=== PATIENT | female | born 1940 | race Caucasian/White ===

== ENCOUNTER 2024-12-11 14:01 | Inpatient (IN) | payer MEDICARE, OTHER, SELFPAY ==
[2024-12-10] VITALS (7 sets, daily range): BP systolic 171–194; BP diastolic 89–101; BMI 26.1
[2024-12-10 19:39] LABS: Hematocrit 44.0 % (37.0-47.0); Hemoglobin 14.6 g/dL (12.0-16.0); Mean Corp Hgb Conc. 33.2 g/dL (33.0-37.0); Mean Corpuscular Volume 87.0 fL (81.0-99.0); Nucleated Red Blood Cells % 0 %; Platelet Count 244 10^3/uL (130-400); Red Cell Dist. Width 12.7 % (11.5-14.5)
[2024-12-10 19:49] LABS: Urine Character Clear (Clear)
[2024-12-10 20:03] LABS: Urine Squamous Cell 16-20 /LPF (Few)
[2024-12-10 20:04] LABS: ALT (SGPT) 17 U/L (0-35); AST (SGOT) 26 U/L (14-36); Albumin 4.4 g/dl (3.5-5.0); Alkaline Phosphatase 79 U/L (38-126); Blood Urea Nitrogen 18 mg/dl (7-17); Calcium 8.9 mg/dl (8.4-10.2); Carbon Dioxide 25 mmol/L (22-30); Chloride 104 mmol/L (98-107); Estimated Creatinine Clearance 41 ml/min; Glucose 132 mg/dl (70-99); Potassium 4.2 mmol/L (3.5-5.1); Sodium 140 mmol/L (135-145); Total Protein 7.4 g/dl (6.3-8.2); eGFR 55.21
--- NOTE | 2024-12-10 20:35 | ED.GENMED ---
History of Present Illness
General
Chief Complaint: Fall
Time Seen by Provider: 12/10/24 20:35
History of Present Illness
History of Present Illness:
FOCUSED PAST MEDICAL HISTORY
- Dementia, high blood pressure
REVIEW OF OLD RECORDS
- No old records available for review in [facility]
Note:
CHIEF COMPLAINT(S)
Frequent falls observed today.
HISTORY OF PRESENT ILLNESS
The patient is an 84-year-old female with a known history of dementia who presented after experiencing three falls today. These incidents were reported by her . He did not witness the falls but confirms her being found on the floor once in
the setting of a planned trip to the eye doctor. The denied any observed injuries or complaints from the patient after these episodes. It is uncertain if she hit her head during the falls, although she is not currently on any anticoagulant
therapy. The patients white blood cell count and hemoglobin level were noted to be within normal limits. There is a mention of a previous fall in another location, after which she couldnt get up, indicating a potential need for placement in a safer
environment.
ADDITIONAL HISTORY OBTAINED FROM SOURCES OTHER THAN PATIENT
Per the patients , three falls were observed today without evidence of injury. He also noted a previous fall when the patient was unable to arise without assistance.
EXTERNAL RECORDS REVIEWED
Attempts to obtain records from [facility] proved challenging; thus, details about previous evaluations or interventions are unclear.
CHRONIC MEDICAL CONDITIONS SIGNIFICANTLY AFFECTING CARE
The patient has a history of dementia affecting her communication and orientation, potentially contributing to her falls.
SOCIAL DETERMINANTS AFFECTING HEALTH
The husbands report mentions that the patient is presently living at home with him, and there may be safety concerns regarding her ability to stay independently without additional support.
PHYSICAL EXAM
General: Alert, no acute distress.
Skin: Warm, dry.
Head: Normocephalic, atraumatic.
Neck: Supple, trachea midline, no midline cervical spine tenderness.
Eye Ears, Nose, Mouth, and Throat: Oral mucosa slightly dry.
Cardiovascular: Normal peripheral perfusion, No edema. Breath sounds clear and equal
Respiratory: Respirations are non-labored.
Gastrointestinal: Abdomen nondistended.
Back: Normal range of motion, Normal alignment.
Musculoskeletal: No pain with passive range of motion at either hip. Evidence of previous knee replacements noted.
Neurological: Alert but not oriented to the current month, can identify hospital location. No focal neurological deficit observed. There may be some slight impairment with finger-nose testing but overall did fair.
Psychiatric: Cooperative, appropriate mood and affect.
PLAN
- Administer intravenous fluids for hydration.
- Obtain a computed tomography scan of the brain to rule out significant injury from falls.
- Evaluate current care environment and consider options for rehabilitation or placement in a facility if safety at home is compromised.
DIFFERENTIAL DIAGNOSIS
The Differential Diagnosis includes, in no particular order and is not limited to:
- Orthostatic hypotension
- Medication side effects
- Progression of dementia
- Sensory deficits
- Cardiovascular events (e.g., arrhythmias)
- Neurological events (e.g., transient ischemic attack)
- Musculoskeletal issues
- Alcohol use
- Visual impairment
- Environmental hazards at home
RADIOLOGY
- CAT scan of the brain shows no acute abnormality
EKG
- Sinus 90, left axis deviation, no acute ST abnormality
LABS
- White count 11.3, hemoglobin normal, creatinine 1.0, glucose 132
UPDATE
-SUMMARY OF ENCOUNTER
The patient, an 84-year-old female with a known history of dementia, presented to the emergency department following three falls on the same day. Her reported these incidents but did not witness them. Upon evaluation, a CT scan of the brain
was performed, which showed no signs of injury or abnormalities. Laboratory work revealed a slightly elevated white blood cell count, but no clear signs of a urinary tract infection were identified, as indicated by the urine analysis. The patient
denies any burning with urination. A urine culture is pending. The patients safety for return home is being evaluated, with considerations for her ability to ambulate safely.
PLAN
- Continue monitoring the patients ability to walk safely with assistance from nursing staff.
- Await the urine culture results to rule out infection.
- Evaluate the patients care environment to ensure safety, given her recent falls and dementia diagnosis.
INDEPENDENT REVIEW OF LABS AND INTERPRETATION OF TESTS
My independent review of CBC shows a slightly elevated white blood cell count.
The urine analysis does not indicate any overwhelming signs of a urinary tract infection.
My independent interpretation of the CT brain scan reported by the radiologist confirms there is no sign of injury or abnormality in the brain.
MEDICAL DECISION MAKING
-Complexity of Data Reviewed: Chronic conditions affecting care include dementia. Differential Diagnosis: Orthostatic hypotension, medication side effects, progression of dementia, sensory deficits, cardiovascular events, neurological events,
musculoskeletal issues, alcohol use, visual impairment, and environmental hazards at home.
-Data:
Category 1
Non-emergency department records reviewed, if applicable. External record reviewed: I reviewed the patients outpatient pharmacy records.
Clinical information was obtained from an independent historian, specifically the patients .
Category 2
My independent interpretation of the CT brain scan indicates no abnormalities.
Category 3
There were no discussions of management with other healthcare providers.
-Risk:
Care significantly affected by Social Determinants of Health: The patients dementia and frequent falls present a significant safety concern, impacting her ability to live independently without additional support.
DIAGNOSIS
Dementia with behavioral disturbance (ICD-10: F02.81)
Repeated falls (ICD-10: R29.6)
Consider discharge however the patient fell 3 times today and is very concerned about her safety at home. The nurse got her up and walked her but she did very poorly with 2 nurses and was leaning into the nurse nearly falling. Unsafe to
discharge.
DISPOSITION
Admit
Phy Exam
Physical Exam
Physical Exam:
See HPI
Course
Orders/Labs/Results
Orders:
Orders
12/10/24 19:18
Electrocardiogram (*1) Urgent
Reason for Study: Fatigue / Weakness
12/10/24 19:19
EKG- Treatment ONCE
12/10/24 19:24
Complete Blood Count/With Diff Urgent
Comprehensive Metabolic Panel Urgent
12/10/24 19:39
Urinalysis Urgent
Date Specimen was Collected: 12/10/24
Time Specimen was Collected: 19:36
Urine Microscopic Urgent
Date Specimen was Collected: 12/10/24
Time Specimen was Collected: 19:36
12/10/24 20:41
CT Head W/o Iv Contrast Urgent
Comment:
Reason For Exam: recurrent falls; dementia
0.9% Sodium Chloride 500 ml [Nss] 500 ml IV BOLUS
Abnormal Lab Results
12/10/24 12/10/24
19:24 19:39
WBC 11.3 H 10^3/uL
(4.8-10.8)
Absolute Neuts (auto) 9.0 H 10^3/uL
(1.4-6.5)
Absolute Monos (auto) 0.9 H 10^3/uL
(0.1-0.6)
Neutrophils % 79.2 H %
(42.2-75.2)
Lymphocytes % 11.4 L %
(20.5-51.1)
BUN 18 H mg/dl
(7-17)
Glucose 132 H mg/dl
(70-99)
Total Bilirubin 1.4 H mg/dl
(0.2-1.3)
Urine Ketones 1+ A
(Negative)
Urine Occult Blood 2+ A
(Negative)
Urine Bilirubin 1+ A
(Negative)
Urine Urobilinogen 2+ A
(Neg - 1+)
Ur Leukocyte Esterase 1+ A
(Negative)
Urine RBC 3-6 A /HPF
(0-2)
Urine WBC 11-15 A /HPF
(0-5)
Urine Bacteria Few A
(Negative)
Urine Albumin 2+ A
(Neg - Trace)
12/10/24 19:24
12/10/24 19:24
Vital Signs
Initial and Last Documented VS:
Initial Vital Signs
Temp Pulse Resp BP Pulse Ox
36.8 C 94 18 174/97 97
12/10/24 19:20 12/10/24 19:20 12/10/24 19:20 12/10/24 19:20 12/10/24 19:20
Last Documented Vital Signs
Temp Pulse Resp BP Pulse Ox
36.8 C 92 18 174/97 97
12/10/24 19:20 12/10/24 19:22 12/10/24 20:00 12/10/24 19:22 12/10/24 20:37
*Pulse Oximetry
SaO2: 97
Oxygen Mode of Delivery: Room air
Patient hypoxic: no
*Critical Care Note
Total Time (30-74mins, 75-104mins- exclusive of procedures): Not Applicable
ED Attending Note
-
Portions of this chart may have been created with voice recognition software.� Occasional wrong word or��sound alike� substitutions may have occurred due to the inherent limitations of voice recognition software.
Discharge Plan
Departure
Referrals:
Ozzie Chavez DO [Family Provider, Family Practice]
Stand Alone Forms: Return to Work
Interventions
Interventions:
*Risk Screen - Suicide Last Done: 12/10/24 19:26
*General Assessment Last Done: 12/10/24 19:26
*Neglect/Abuse Screening Last Done: 12/10/24 19:26
*ED- Fall Risk Assessment Last Done: 12/10/24 19:26
*ED COVID-19 Vaccine History Last Done: 12/10/24 19:26
*ED Influenza Vaccine History Last Done: 12/10/24 19:26
ED-Musculoskeletal Assessment Last Done: 12/10/24 19:37
ED- Neurological Assessment Last Done: 12/10/24 19:37
ED-Skin Assessment Last Done: 12/10/24 19:37
Discharge Date and Time
Print Language: KOREAN
[2024-12-10] MEDS: NSS 500 IV (20:55)
--- NOTE | 2024-12-10 23:01 | HPS.HSE ---
Family Physician
-
Family Physician: Ozzie Chavez
Chief Complaint
-
Fall x 3
History of Present Illness
84-year-old female from home where she lives with her who also has dementia short-term memory impairment. He states his fell 3 times today. He also reports when they were at their [facility] home on 11/18/24 she also fell she was unable to
get up off the floor he called the ambulance she was taken to [facility] he is unsure what they treated her with however records look like she was given acid reflux medication and Robaxin. He believes he did burr picker one of the
medications but he is unsure if she is taking it. The patient recalls she did fall today but has no memory of the fall. She is supposed to be using a cane. She is unsure whether she takes her medications. She thinks she does lay them out but is
unsure of taking them. I spoke with her daughter Janay via phone who is try different alternatives setting up medications 2 weeks at a time but she states her mother just moved them around and her stepfather also forgets. She also believes she has
not filled her Namenda and rivastigmine that she receives from neurology follows with [facility] been she is unsure when her mother saw her last.
She has past medical history dementia, CKD 3B, hypertension, GERD, hypothyroidism
Medical History
Past Medical History
Past Medical History: Reports Other
Additional Past Medical History:
Dementia
CKD 3B
Hypertension
GERD
Hypothyroidism
Past Surgical History: Reports Other
Additional Past Surgical History:
Hysterectomy
Social History
Tobacco: Non-smoker
Alcohol: None
Personal:
Living: With Family (Lives with )
Employment: Retired
Family History
Family History: Unable to Obtain
Allergies / Home Medications
Allergies reflects when Allergies were last updated in [facility].
Home Medications with original date entered in [facility]
Allergy/Medication List:
Allergies
Allergy/AdvReac Type Severity Reaction Status Date / Time
No Known Allergies Allergy Verified 12/10/24 19:23
Home Medications
Namenda 10 mg PO DAILY 12/10/24
amlodipine 5 mg tablet 5 mg PO DAILY 12/10/24
levothyroxine 50 mcg tablet 50 mcg PO DAILY 12/10/24
rivastigmine 3 mg PO BID 12/10/24
Review of Systems
-
History Source: Patient and Family ( and daughter Janay via phone)
A 12 point ROS was completed and negative except as noted: Yes
Constitutional: Denies Fever or Fatigue
EENT: Denies Tearing or Mouth Swelling
Respiratory: Denies Cough or Trouble Breathing
Cardiac: Denies Chest Pain, Diaphoresis, Palpitations or Syncope
Abdomen/GI: Denies Abdominal Pain, Nausea, Vomiting, Diarrhea or Constipated
: Denies Dysuria, Frequency, Flank Pain or Incontinence
Musculoskeletal: Denies Joint Pain or Muscle Pain
Skin: Denies Itching or Rash
Neurological: Reports Headache (Frontal) and Weakness (With standing reportedly starts to lean and fall); Denies Dizzy
Endocrine: Reports No Symptoms
Hematologic/Lymphatic: Reports No Symptoms
Psych: Reports Calm
Physical Exam
Vital Signs
Vital Signs
Temp Pulse Resp BP Pulse Ox
98.3 F 92 18 174/97 97
12/10/24 19:20 12/10/24 19:22 12/10/24 20:00 12/10/24 19:22 12/10/24 20:37
Physical Exam
General: Conversant; No Fever or Chills
HEENT: NormoCephalic, Anicteric, Moist mucous membranes, Atraumatic, PERRLA, [place] Conjunctivae and No Ptosis
Respiratory: Clear; No Wheezes, Rales or Rhonchi
Cardiac: S1/S2 and Regular Rhythm; No Murmur, Rub, Gallop or Peripheral Edema
Breast: Deferred by me
GI: Soft, Non Tender, Non Distended, Normal Bowel Sounds and No Hepatosplenomegaly
Rectal: Deferred by Provider
Genito-urinary: Deferred by me
Musculoskeletal: No Clubbing, No Cyanosis and No Edema
Skin: Warm and Dry; No Rash
Neuro: Awake, Alert, Oriented (To name, , daughter, place but not medications, history, recent events due to history of dementia) and Other (Unsteady on feet according to nurse when attempted to walk in ER); No Slurred Speech, Facial Droop,
Tremors or Sedated
Psych: Calm
Laboratory Results
-
12/10/24 19:24
12/10/24 19:24
Laboratory Results
Total Bilirubin 1.4 mg/dl (0.2-1.3) H 12/10/24 19:24
AST 26 U/L (14-36) 12/10/24 19:24
ALT 17 U/L (0-35) 12/10/24 19:24
Alkaline Phosphatase 79 U/L (38-126) 12/10/24 19:24
Data Reviewed
-
CT Scan: Report Reviewed by me
Lab Data: Labs Reviewed by me
Impression/Plan
-
Impression/plan:
Observation MedSurg
#Uncontrolled hypertension due to dementia
BP 187/100
Patient has not been taking amlodipine 5 mg daily she is unsure when she took it last
- Resume amlodipine 5 mg daily
- Will give IV labetalol now
#Acute ambulatory dysfunction with recurrent falls today
Fell 3 times at home
- Unable to stand without falling
-orthostatics vitals
- Consult PT OT/case management as needs help at home due to dementia herself with dementia per daughter
CT head: No acute intracranial abnormality. No intracranial hemorrhage or skull fracture.
Chronic microvascular white matter disease.
Moderate global atrophy
EKG: NSR 90 bpm, QTc 464 MS no previous EKGs
#Pyuria likely contaminant
WBC 11.3 with left shift, afebrile 98.3, HR 92, 174/97
Urine WBC 11�15+1 leukocytes +2 occult blood few bacteria
Squamous epithelial 16�20
-Follow urine culture
#Dementia�moderate short-term
Oriented to name, , daughter
Unsure what happened today if she takes her medications
-Used to be on Namenda and rivastigmine
#CKD 3B
Creat 1/CrCl 41
#GERD
- Was given prescription for Prilosec 11/20/2024 [facility] is not taking
#Hypothyroidism
-resume Levothyroxine 50 mcg patient unsure if she is taking
-Check TSH with T4 reflex
DVT prophylaxis
Subcu heparin
DNR per patient with at bedside
Emergency contact is patient's daughter Janay Del Castillo [phone] as patient's also has dementia
[2024-12-10] MEDS: TYLENOL 650 MG PO (23:41)
[2024-12-11] VITALS (11 sets, daily range): BP systolic 162–188; BP diastolic 89–108; PULSE 75–99; O2SAT 98; BMI 26.1
[2024-12-11 00:07] LABS: Magnesium 2.2 mg/dl (1.6-2.3)
[2024-12-11] MEDS: TRANDATE 10 MG IV (00:31)
--- NOTE | 2024-12-11 01:00 | PTCARENOTE ---
Received patient from ED via stretcher. Patient pulled over from stretcher to bed. AAOx2, forgetful with date. No current complaints of pain. Oriented patient to room and placed call [place]ton within reach.
--- NOTE | 2024-12-11 01:25 | W.PN.UPDATE ---
Update Note
Progress Note Update
Patient seen in conjunction with nurse practitioner. I agree with the findings as seen physical. At goal assessment and plan listed otherwise.
Briefly, this is a 84-year-old female with past medical history significant for hypertension, hypothyroid and dementia who presented to the emergency department following concern for falls at home. Patient lives with spouse and both are unreliable
historians. Spouse reported to fall. He did not witness the falls but confirmed that the aide found her on the floor on multiple occasions and requested EMS to get her up. He is unable to recall details of how many times she had falling and he
had to call EMS. By family members she also had a fall when they were vacationing with family members recently. Patient herself denies having any pain. She reports a mild headache. She denies feeling dizzy or lightheaded. She denies having any
fevers chills cough shortness of breath chest pain nausea vomiting or diaphoresis. She denies having any urinary symptoms. Family reports that there has been issues with filling her medications. They sent in caregiver to check on her and it was
found that she is not compliant with her medications and only range ranges the medications in a pillbox but does not take them.
In the emergency department she was afebrile, blood pressure was 180s systolic. Pulse in the 70s and she was satting 98% on room air. CT of the head shows no acute interval changes. ECG showed a normal sinus rhythm at a rate of 90 without any
acute ischemic changes. UA was unremarkable. CBC was unremarkable stop electrolytes BUN and creatinine were all in normal range.
This is a 84-year-old with progressive dementia presenting to the emergency department via EMS for concern for falls. And no clear weakness due to falls but cannot be confirmed by spouse was found on the ground. She has no injuries. She has no
cardiac findings. She has no signs of an acute infection. Is not clear why she is falling but she has some ambulatory dysfunction. She has no significant cardiac disease.
� Will admit to telemetry
- Check orthostatic vital sign
- Will restart amlodipine, as needed labetalol IV for SBP greater than 190
- Check TSH
- PT consult
- Case management
DVT prophylaxis�heparin subcu
CODE STATUS�DNR
[2024-12-11] MEDS: SYNTHROID 50 MCG PO (05:12)
[2024-12-11 07:38] LABS: Hematocrit 41.2 % (37.0-47.0); Hemoglobin 13.4 g/dL (12.0-16.0); Mean Corp Hgb Conc. 32.5 g/dL (33.0-37.0); Mean Corpuscular Volume 91.2 fL (81.0-99.0); Nucleated Red Blood Cells % 0 %; Platelet Count 214 10^3/uL (130-400); Red Cell Dist. Width 12.8 % (11.5-14.5)
[2024-12-11 08:10] LABS: ALT (SGPT) 15 U/L (0-35); AST (SGOT) 24 U/L (14-36); Albumin 3.8 g/dl (3.5-5.0); Alkaline Phosphatase 76 U/L (38-126); Blood Urea Nitrogen 17 mg/dl (7-17); Calcium 8.4 mg/dl (8.4-10.2); Carbon Dioxide 25 mmol/L (22-30); Chloride 108 mmol/L (98-107); Estimated Creatinine Clearance 41 ml/min; Glucose 109 mg/dl (70-99); Potassium 4.0 mmol/L (3.5-5.1); Sodium 141 mmol/L (135-145); Total Protein 6.6 g/dl (6.3-8.2); eGFR 55.21
--- NOTE | 2024-12-11 08:26 | W.PN.HOSP.TC ---
Addendum entered and electronically signed by Nazario Gonzalez DO 12/11/24 09:39:
Updated patient's daughter Janay on the phone. All questions answered.
Addendum entered and electronically signed by Nazario Gonzalez, 12/11/24 09:20:
Patient does have right hemiparesis on exam with very mild right lower facial droop.
Unclear duration of symptoms. Potential stroke could explain the findings as well as her presentation with multiple falls. Will obtain brain MRI.
Left a voicemail for patient's daughter to call me back.
Original Note:
Today's Communication/Plan
-
Orthostatic vitals
Add HCTZ
PT/OT
Discharge planning
Assessment / Plan
Assessment / Plan
Gen-awake, alert, NAD
HEENT-NC, AT, anicteric, clear oral mm
Neck-supple
CV-reg, no M, +S1/S2
Lungs-clear B/L
Abd-soft, NT, ND
Ext-no edema
Musculoskeletal-no cyanosis, clubbing
Skin-warm and dry
Neuro-grossly non-focal
Psych-calm, cooperative
Ambulatory dysfunction, falls -unclear etiology. Suspect related to deconditioning, frailty. Patient has no focal neurologic deficits. Check orthostatics.
PT/OT.
Hypertensive urgency -blood pressure uncontrolled, reportedly was not taking her meds prior to admission. Amlodipine resumed. Will add HCTZ.
Hypothyroidism -continue levothyroxine. TSH normal.
Dementia -presumably Alzheimer's type.
DNR
Dispo -anticipate will need long-term care. Will discuss with case management.
Anticipated Discharge: Within 24 hours
Subjective/Interval History
-
Date of Service: December 11, 2024
Patient seen and examined, no complaints. Confused.
Objective Data
-
Labs:
Laboratory Results
12/11/24 12/11/24
06:47 06:48
WBC 7.0
Hgb 13.4
Hct 41.2
Plt Count 214
Sodium 141
Potassium 4.0
Chloride 108 H
Carbon Dioxide 25
BUN 17
Creatinine 1.0
Glucose 109 H
Calcium 8.4
Total Bilirubin 1.7 H
AST 24
ALT 15
Alkaline Phosphatase 76
Vital Signs:
Vital Signs
Temp Pulse Resp BP Pulse Ox
97.6 F 73 18 188/101 94
12/11/24 07:30 12/11/24 07:30 12/11/24 07:30 12/11/24 07:30 12/11/24 07:30
I&O
12/10/24 12/11/24 12/12/24
06:59 06:59 06:59
Output Total 50 / 50
Balance -50 / -50
Review of Systems
-
Unable to obtain full review of systems at this time due to: Dementia
History Source: Patient
All other systems: Reviewed and negative
[2024-12-11 09:01] LABS: Glucose - Point of Care 99 mg/dl (70-99)
[2024-12-11] MEDS: ORETIC 25 MG PO (09:13)
[2024-12-11] MEDS: HEPARIN 5000 UNITS SC ×2 (09:13→20:00)
[2024-12-11] MEDS: NORVASC 5 MG PO (09:13)
--- NOTE | 2024-12-11 09:45 | CM ---
Addendum entered by Nasreen Alcocer 12/11/24 18:05:
PT rec acute rehab. Referral sent to [facility] ([facility]), family not sure if they want this rehab. stated he wanted to look for somewhere closer. Choices need to presented to family.
Dtr says that the patient has [employer] insurance also but they do not have the new cards yet. Medicare is primary
Pt is not stable.
Plan: DC to acute rehab when stable.
Addendum entered by Nasreen Alcocer 12/11/24 10:04:
Met with pt briefly, introduction to CM and explanation of MIRANDA
Original Note:
IA and RUTH completed with dtr due to pt's dementia . MIRANDA also placed on chart. Pt lives with spouse in a single story home in a [place] community. Home has 5 steps at the entrance to the home. Has hx of HH after orthopedic events (knees replaced and
hip surgery). Dtr does not know what agency was used. Was at acute rehab at [place] a couple of years ago s/p ortho procedure. PCP, Rx,and insurance verified. No insecurities identified.
PCP: Ozzie Chavez
RX: [facility] in [place].
CM consult in process. CM spoke to Dtr. Will wait for outcome of PT/OT consult before moving forward with DC plan
is POA, per dtr. Have requested that these documents to the hospital today when she visits.
is unable to get pt off of the floor by himself after she falls.
Dtr states that the pt needs to have constant cues/reminders to perform ADLs, including taking medications, eating, drinking and bathing. Pt is still undergoing workup for cause of multiple falls at home.
Plan: TBD Awaiting PT/OT evals and results of brain MRI
--- NOTE | 2024-12-11 10:04 | PTCARENOTE ---
Notified by PT that pt was having Rt arm weakness; pt also with right facial droop; having difficulty standing. Dr. Gonzalez with pt- stroke alert not called; neuro consulted and pt for MRI. NIHSS initiated. Pt without c/o; stated 'I feel fine'.
Will continue to monitor.
[2024-12-11] MEDS: LOW STRENGTH ASPIRIN 81 MG PO (10:22)
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
[2024-12-11 14:23] LABS: Ferritin 183.0 ng/ml (11.1-264.0)
[2024-12-11 14:54] LABS: Folate 3.0 ng/ml (2.76-20); Vitamin B12 284 pg/ml (239-931)
--- NOTE | 2024-12-11 16:11 | PTCARENOTE ---
Pt AAO x3, moves LUE/LLE well, able to move RUE but arm is weak; has slight movement RLE; cannot lift Rt leg. Sensation (+) to extremities x4. Pt able to stand briefly to pivot/transfer with assist x2; has difficulty supporting weight. Pt has (+) Rt
facial droop; occ slight word-slurring. NIHSS 8. VSS. Telemetry:NSR. On room air- pulse ox 97%, no SOB noted. Abd obese, soft, katherine PO; no dysphagia noted. Incont urine; Purewick catheter in place draining lt edna urine. Resting in bed at
present; family at bedside. Will continue to monitor.
[2024-12-11] MEDS: LIPITOR 40 MG PO (17:48)
[2024-12-12] VITALS (10 sets, daily range): BP systolic 138–179; BP diastolic 78–111; PULSE 87; O2SAT 93–94
--- NOTE | 2024-12-12 05:30 | PTCARENOTE ---
At time of scheduled neuro check patient was noted to have increased weakness to her right side, increased slurring of speech, increased confusion, worsening ataxia, and new aphasia. Repeat NIH was conducted and noted to have increase in score from
a 6 to an 11. WEB DEVELOPMENT INTERN made aware and denied need for a stroke alert. Order for stat CT placed and completed.
--- NOTE | 2024-12-12 05:42 | W.PN.UPDATE ---
Addendum entered and electronically signed by MITCH Nichole 12/12/24 06:58:
ct negative for hemorrhagic conversion.
Original Note:
Update Note
Progress Note Update
0530 RN reports NIH worsening 6--> 11 (was an 8 for dayshift)--- worsening limb ataxia and mild aphasia, wrong LOC questions).
Brain MRI done yesterday showed + CVA
Will recheck CT head to assess for evolving cva
[2024-12-12] MEDS: SYNTHROID 50 MCG PO (06:28)
--- NOTE | 2024-12-12 07:56 | W.PN.HOSP.TC ---
Today's Communication/Plan
-
Increase amlodipine
Discharge planning
Assessment / Plan
Assessment / Plan
Gen-awake, alert, NAD
HEENT-NC, AT, anicteric, clear oral mm
Neck-supple
CV-reg, no M, +S1/S2
Lungs-clear B/L
Abd-soft, NT, ND
Ext-no edema
Musculoskeletal-no cyanosis, clubbing
Skin-warm and dry
Neuro-right hemiparesis, worse in the right leg compared to the right arm, very mild right lower facial droop
Psych-calm, cooperative
Acute ischemic left hemispheric stroke -right hemiparesis. Strongly suspect that the onset of stroke was with her multiple falls on December 10. Noted to be unsteady on her feet in the emergency room with attempted ambulation.
Brain MRI confirmed 3.9 cm focus of restricted diffusion in the left worrell radiata/left frontal periventricular white matter extending slightly into the left putamen consistent with acute infarction. Moderate atrophy with sequela of moderate
chronic small vessel ischemic disease. CTA negative for large vessel occlusion.
Echocardiogram unremarkable.
Neurology recommends aspirin and Plavix. Lipitor started. Lipid panel pending. Was not on antiplatelet therapy prior to admission as far as we know.
Suspect etiology of stroke is noncompliance with antihypertensives and uncontrolled hypertension.
Hypertensive emergency -presentation with neurologic deficits, falls, acute stroke, uncontrolled blood pressure. Was only on amlodipine 5 mg daily at home. Dose increased to 10 mg daily, HCTZ started. Discussed with family that she will need at
least 2-3 blood pressure meds moving forward. Encourage compliance with home medications, although her dementia will likely get in the way.
Vitamin B12 deficiency -start oral repletion.
Relatively low folic acid level, will start oral repletion.
Hypothyroidism -continue levothyroxine. TSH normal.
Dementia -presumably Alzheimer's type.
DNR
Dispo -anticipate will need long-term care. Will discuss with case management.
Anticipated Discharge: Today
Subjective/Interval History
-
Date of Service: December 12, 2024
Patient seen and examined. No complaints.
Objective Data
-
Vital Signs:
Vital Signs
Temp Pulse Resp BP Pulse Ox
97.5 F 79 18 166/104 93
12/12/24 07:37 12/12/24 07:37 12/12/24 07:37 12/12/24 07:37 12/12/24 07:37
I&O
12/11/24 12/12/24 12/13/24
06:59 06:59 06:59
Intake Total 460 / 460
Output Total 50 / 50 1150 / 1150
Balance -50 / -50 -690 / -690
Review of Systems
-
Unable to obtain full review of systems at this time due to: Dementia
History Source: Patient
All other systems: Reviewed and negative
[2024-12-12 08:59] LABS: HDL Cholesterol 66 mg/dl; LDL Cholesterol, Calculated 143 mg/dl; Very Low Density Lipoprotein 16 mg/dl (0-30)
[2024-12-12] MEDS: HEPARIN 5000 UNITS SC ×2 (09:18→20:43)
[2024-12-12] MEDS: PLAVIX 300 MG PO (09:18)
[2024-12-12] MEDS: VITAMIN B-12 1000 MCG PO (09:20)
[2024-12-12] MEDS: FOLVITE 1 MG PO (09:20)
[2024-12-12] MEDS: ORETIC 25 MG PO (09:20)
[2024-12-12] MEDS: NORVASC 10 MG PO (09:21)
[2024-12-12] MEDS: LOW STRENGTH ASPIRIN 81 MG PO (09:22)
[2024-12-12 10:02] LABS: Glycohemoglobin (HgbA1c) 5.4 % (4.0-5.9)
--- NOTE | 2024-12-12 11:44 | CM ---
CM reviewed chart, patient seen bedside with daughter.
CM reviewed with [facility]ison[facility], can accept patient for [facility] location, likely tomorrow, concerned regarding patients BP.
Daughter also requesting referral to [facility], placed in [facility]. Daughter reports decision will be up to her step father, likely will chose [facility].
CM will continue to follow.
Plan; Acute Rehab, [facility] can accept pending BP, additional referral placed to [facility]
--- NOTE | 2024-12-12 13:23 | W.PN.NEURO.1 ---
Addendum entered and electronically signed by Efren Martinez MD 12/12/24 19:49:
I have seen and examined the patient today with the nurse practitioner Nereida Salinas, and I generally agree with her assessment and management plan. The following is my addendum.
The patient is an 82 years old female with a known diagnosis of dementia, who presented after she had 3 falls at home, on 12/10/2024. The patient cannot recall any of these events and that she cannot tell whether she had a loss of consciousness
after the falls. The CT of the head was negative for any acute abnormalities. She was found to have right-sided weakness, therefore, neurology was consulted. Her right-sided weakness has progressed since yesterday however her speech is clear.
Neurologic semination:
The patient is alert and oriented to self but she cannot tell the month or her age
The speech is clear
The cranial nerves II to XII are grossly intact aside from her right sided facial droop
The strength is grossly 3/5 in the right upper extremity and grossly 2/5 in the right lower extremity, while the strength is grossly 5/5 in the left upper and lower extremities
The sensations are grossly intact
There was no limb ataxia seen
ASSESSMENT AND PLAN:
The CT of the head did not show any acute intracranial abnormality.
The CTA of head and neck did not show large vessel occlusion or arterial dissection.
The MRI of the brain showed a 3.9 cm focus of restricted diffusion within the left worrell radiata/left frontal periventricular white matter extending slightly into the left putamen consistent with an acute infarction.
The patient's right-sided weakness has progressed since yesterday and she had a repeat CT of the head done today that showed hyperattenuation within the left worrell radiata, and the area of acute infarct seen on MRI brain dated 12/11/2024.
The patient had acute stroke that primarily involves the subcortical white matter in the left hemisphere. She also has history of dementia. The risk factors for stroke include age, hypertension and history of ovarian cancer.
The patient is going to be on aspirin 81 mg daily and Plavix 75 mg daily.
Atorvastatin 40 mg daily.
Echocardiogram.
DVT prophylaxis.
Follow-up with neurology as an outpatient after discharge.
Recommend inpatient rehabilitation.
Will sign off. Please call if you have any question.
Original Note:
Today's Communication / Plan
-
.
Neuro Assessment/Plan
Assessment
The patient is an 82 years old female with a known diagnosis of dementia, who presented after she had 3 falls at home, yesterday on 12/10/2024. The patient cannot recall any of these events and that she cannot tell whether she had a loss of
consciousness after the falls. The CT of the head was negative for any acute abnormalities. Her right side was noted to be mildly weak on examination, therefore, neurology was consulted.
CT of the head did not show any acute intracranial abnormality.
CTA of head and neck did not show large vessel occlusion or arterial dissection.
MRI of the brain showed a 3.9 cm focus of restricted diffusion within the left worrell radiata/left frontal periventricular white matter extending slightly into the left putamen consistent with an acute infarction.
The patient had acute stroke that primarily involves the subcortical white matter in the left hemisphere. Etiology of stroke is likely small vessel disease. She also has history of dementia. The risk factors for stroke include age, hypertension
and history of ovarian cancer.
Plan
-Continue DAPT with aspirin 81mg and clopidogrel 75mg daily for 21 days. After 21 days, discontinue clopidogrel and continue aspirin 81mg daily monotherapy.
-Goal normotension.
-LDL goal <70. LDL is 143. Continue newly initiated atorvastatin 40mg daily.
-Goal normoglycemia, hbA1c is 5.4.
-NIHSS and neurological checks per unit guidelines.
-Provide patient with a stroke education packet.
-PT/OT/ST evaluations.
-DVT prophylaxis.
-Vitamin B12 level is low at 284, goal is greater than 400. Continue newly initiated cyanocobalamin 1000mcg daily.
-Follow-up with Neurology as an outpatient.
Please contact our service with any questions/concerns.
Subjective/Objective
Subjective Data
Date of Service: December 12, 2024
RLE strength worsened overnight. CT head was obtained at 0530 due to NIHSS increasing to 12, no acute abnormalities. Patient offers no complaints.
Objective Data
Vital Signs
Temp Pulse Resp BP Pulse Ox
98.3 F 89 16 168/98 96
12/12/24 11:55 12/12/24 11:55 12/12/24 11:55 12/12/24 11:55 12/12/24 11:55
Lab Results
12/11/24 06:48
12/11/24 06:47
Sodium 141 mmol/L (135-145) 12/11/24 06:47
Potassium 4.0 mmol/L (3.5-5.1) 12/11/24 06:47
BUN 17 mg/dl (7-17) 12/11/24 06:47
Glucose 109 mg/dl (70-99) H 12/11/24 06:47
Calcium 8.4 mg/dl (8.4-10.2) 12/11/24 06:47
LDL Cholesterol, Calc 143 mg/dl 12/12/24 07:49
Vitamin B12 284 pg/ml (239-931) 12/11/24 06:48
Patient Allergies
No Known Allergies Allergy (Verified 12/10/24 19:23)
LDL Level: >70, statin ordered
Review of Systems
-
Unable to obtain full review of systems at this time due to: Dementia
History Source: Patient
Neuro: Negative Dizzy, Headache, Weakness, Numbness, Ataxia, Tremors or Speech Problem
Physical Exam
-
General: No Apparent Distress
Eyes: No Ptosis and PERRLA
HEENT: Normocephalic and Atraumatic
Neck: Full Range of Motion
Respiratory: No Dyspnea
GI: Non-distended
Extremities: No Clubbing, No Cyanosis and No Edema
Psych: Confused; Negative Intact Judgement/Insight
Extended Neurological Exam
Mood & Affect: Mood Unremarkable and Affect Unremarkable
Attention Span & Concentration: Awake, Alert, Interactive and Moderate Difficulty with 2 Step Request
Memory: Reduced
Tremor: Hand Tremor Absent and Head Tremor Absent
Involuntary Movement: None
Speech: Quality Unremarkable, Quantity Unremarkable and Rate of Production Unremarkable
Cranial Nerve II: Left Eye: Pupillary Reactivity Unremarkable, Pupillary Size Unremarkable and Visual Kaba Intact
Cranial Nerve II: Right Eye: Pupillary Reactivity Unremarkable, Pupillary Size Unremarkable and Visual Kaba Intact
Cranial Nerves III, IV, : Extraocular Movement: Extraocular Movement Full in all Directions
Cranial Nerve VII: Facial Symmetry: Reduced (Right facial droop)
Cranial Nerve VIII: Hearing: Unremarkable Hearing to Normal Conversational Volume
Cranial Nerves IX, X: Palate Movement: Palate Elevation Symmetric
Cranial Nerve XII: Tongue Protusion: Midline
Muscle Strength, Overall: Reduced on Right (RUE 4-/5, LUE 5/5, RLE 2/5, LLE 5/5)
Muscle Bulk & Tone: Bulk Unremarkable and Tone Unremarkable
Pronator Drift: Drift in Right Upper Extremity
Coordination: CLAUDETTE Satellites around Right and [id number]-[id number] movement abnormal (Unable to perform RLE)
Babinski Sign: Absent Bilaterally
Modified Mayte Score (MRS)
-
Modified Dupage Scale (mRS): Moderately severe disability. Unable to attend to bodily needs/walk.
Score: 4
Data Reviewed
-
CT-A: Report Reviewed and Image Reviewed
CT Head: Report Reviewed and Image Reviewed
MRI Head: Report Reviewed and Image Reviewed
MRA Head: Report Reviewed and Image Reviewed
MRA Neck: Report Reviewed and Image Reviewed
Echocardiogram: Report Reviewed
Labs: Report Reviewed
Lipid Profile: Report Reviewed
HgbA1C: Report Reviewed
Reviewed with: Physician and Patient
Medications
-
Active Medications
Generic Name Dose Route Start Last Admin
Trade Name Freq PRN Reason Stop Dose Admin
Acetaminophen 650 mg 12/11/24 00:42
Acetaminophen 325 Mg Tablet PO 01/08/25 00:41
Q4HPRN PRN
mild pain/STINSON/temp> 100.4F
Amlodipine Besylate 10 mg 12/12/24 08:00 12/12/24 09:21
Amlodipine 10 Mg Tablet PO 01/09/25 07:59 10 mg
DAILY BEBETO Administration
Aspirin 81 mg 12/12/24 08:00 12/12/24 09:22
Aspirin 81 Mg Chewable Tablet PO 01/09/25 07:59 81 mg
DAILY BEBETO Administration
Atorvastatin Calcium 40 mg 12/11/24 18:00 12/11/24 17:48
Atorvastatin (Lipitor) 40 Mg Tablet PO 01/08/25 17:59 40 mg
QPM BEBETO Administration
Clopidogrel Bisulfate 75 mg 12/13/24 08:00
Clopidogrel 75 Mg Tablet PO 01/03/25 07:59
DAILY BEBETO
Cyanocobalamin 1,000 mcg 12/12/24 08:00 12/12/24 09:20
Cyanocobalamin (Vitamin B-12) 500 Mcg Tablet PO 01/09/25 07:59 1,000 mcg
DAILY BEBETO Administration
Folic Acid 1 mg 12/12/24 08:00 12/12/24 09:20
Folic Acid 1 Mg Tablet PO 01/09/25 07:59 1 mg
DAILY BEBETO Administration
Heparin Sodium 5,000 units 12/11/24 08:00 12/12/24 09:18
Heparin 5,000 Units/Ml 1 Ml Vial SC 01/08/25 07:59 5,000 units
Q12 BEBETO Administration
Hydrochlorothiazide 25 mg 12/11/24 09:00 12/12/24 09:20
Hydrochlorothiazide 25 Mg Tablet PO 01/08/25 08:59 25 mg
DAILY BEBETO Administration
Levothyroxine Sodium 50 mcg 12/11/24 06:00 12/12/24 06:28
Levothyroxine 50 Mcg Tablet PO 01/08/25 05:59 50 mcg
DAILY @ 0600 BEBETO Administration
Sodium Chloride 0 flush 12/11/24 01:00
Sodium Chloride 0.9% (Flush) Syringe IV 01/08/25 00:59
PER PROTOCOL BEBETO
Home Medications
�Medication �Instructions �Recorded
Namenda 10 mg PO DAILY Neurological 12/10/24
Condition
amlodipine 5 mg tablet 5 mg PO DAILY Blood Pressure 12/10/24
levothyroxine 50 mcg tablet 50 mcg PO DAILY Thyroid 12/10/24
rivastigmine 3 mg PO BID Neurological Condition 12/10/24
--- NOTE | 2024-12-12 16:01 | PTOTSP ---
Speech Therapy Evaluation:
Pt presents w/ acute (CVA) and chronic (dementia, GERD) risk factors for aspiration/dyshagia. However, no reports of difficulty w/ P.O. intake, no s/sx of aspiration observed during bedside swallow evaluation, pt is on room air, and WBC is WNL. It
is recommended tat pt continues w/ Regulars, Thins diet w/ partial supervision and assistance w/ meals.
Quick Aphasia Battery (QAB) administered to assess language domains. Pt's score indicates mild aphasia w/ noted auditory comprehension deficits at the sentence level and reduced speech rate/length of utterances. Pt and report language is at
baseline. Pt presents w/ mild dysarthria characterized y imprecise articulation.
Recommendations:
1. Regulars, Thins
2. Medications as best tolerated
3. Partial supervision/assistance w, meals
4. Strategies: Alternating liquid washes, clearing mouth before each bite, reflux precautions
5. ST to F/U at the acute care level to observe diet level tolerance and for cognitive-linguistic treatment.
[2024-12-12] MEDS: LIPITOR 40 MG PO (17:21)
[2024-12-12] MEDS: APRESOLINE 5 MG IV (21:11)
[2024-12-13] VITALS (10 sets, daily range): BP systolic 126–148; BP diastolic 75–93; PULSE 85; O2SAT 97
[2024-12-13] MEDS: SYNTHROID 50 MCG PO (05:29)
[2024-12-13] MEDS: ORETIC 25 MG PO (08:35)
[2024-12-13] MEDS: VITAMIN B-12 1000 MCG PO (08:35)
[2024-12-13] MEDS: NORVASC 10 MG PO (08:35)
[2024-12-13] MEDS: LOW STRENGTH ASPIRIN 81 MG PO (08:35)
[2024-12-13] MEDS: PLAVIX 75 MG PO (08:36)
[2024-12-13] MEDS: FOLVITE 1 MG PO (08:36)
[2024-12-13] MEDS: HEPARIN 5000 UNITS SC ×2 (08:36→20:01)
[2024-12-13] MEDS: FLUSH (NSS) 1 FLUSH IV (08:36)
--- NOTE | 2024-12-13 09:45 | W.DS.TRANS ---
DC Summary - Manager Material
-
Discharge Instructions:
Discharge Diagnosis/Procedures Acute stroke, right hemiparesis
Diet Low Cholesterol,Low Fat,Low Sodium
Activity As tolerated,With assistance
Driving Restrictions No driving
Bathing Restrictions None
Instructions:
Stand-Alone Forms:
Changes to Home Medications: Yes
Discharge Medications:
DC Medications w/original date entered in [employer]
levothyroxine 50 mcg tablet 50 mcg PO DAILY Thyroid 12/10/24
acetaminophen 325 mg tablet 650 mg (2 x 325 mg) PO Q4HPRN PRN mild pain/STINSON/temp> 100.4F #0 tabs 12/13/24
amlodipine 10 mg tablet 10 mg PO DAILY #0 tabs 12/13/24
aspirin 81 mg chewable tablet 81 mg PO DAILY #0 tabs 12/13/24
atorvastatin 40 mg tablet 40 mg PO QPM #0 tabs 12/13/24
clopidogrel 75 mg tablet 75 mg PO DAILY #0 tabs 12/13/24
cyanocobalamin (vitamin B-12) 500 mcg tablet 1,000 mcg (2 x 500 mcg) PO DAILY #0 tabs 12/13/24
folic acid 1 mg tablet 1 mg PO DAILY #0 tabs 12/13/24
hydrochlorothiazide 25 mg tablet 25 mg PO DAILY #0 tabs 12/13/24
Home Medication Changes
Amlodipine dose increased to 10 mg daily.
Pending Results: No
--- NOTE | 2024-12-13 09:46 | W.PN.HOSP.TC ---
Today's Communication/Plan
-
Discharge
Assessment / Plan
Assessment / Plan
Gen-awake, alert, NAD
HEENT-NC, AT, anicteric, clear oral mm
Neck-supple
CV-reg, no M, +S1/S2
Lungs-clear B/L
Abd-soft, NT, ND
Ext-no edema
Musculoskeletal-no cyanosis, clubbing
Skin-warm and dry
Neuro-right hemiparesis, worse in the right leg compared to the right arm, very mild right lower facial droop
Psych-calm, cooperative
Acute ischemic left hemispheric stroke -right hemiparesis. Unfortunately right hemiparesis is worse today compared to yesterday. Strongly suspect that the onset of stroke was with her multiple falls on December 10. Noted to be unsteady on her feet
in the emergency room with attempted ambulation. Evaluated by neurology, unfortunately not a thrombolysis candidate.
Brain MRI confirmed 3.9 cm focus of restricted diffusion in the left worrell radiata/left frontal periventricular white matter extending slightly into the left putamen consistent with acute infarction. Moderate atrophy with sequela of moderate
chronic small vessel ischemic disease. CTA negative for large vessel occlusion.
Echocardiogram unremarkable.
Neurology recommends aspirin and Plavix for 21 days then aspirin alone. Lipitor started. LDL noted to be 143, HDL 66, total cholesterol 225. Was not on antiplatelet therapy prior to admission as far as we know.
Suspect etiology of stroke is noncompliance with antihypertensives and uncontrolled hypertension.
Hypertensive emergency -presentation with neurologic deficits, falls, acute stroke, uncontrolled blood pressure. Was only on amlodipine 5 mg daily at home. Dose increased to 10 mg daily, HCTZ started. Discussed with family that she will need at
least 2-3 blood pressure meds moving forward. Encourage compliance with home medications, although her dementia will likely get in the way.
Spoke with daughter at the bedside today. Apparently her mother has not followed up with her primary care doctor in quite some time and was not taking blood pressure meds regularly at home. Mother was living alone with her .
Vitamin B12 deficiency -continue oral repletion.
Relatively low folic acid level, continue oral repletion.
Hypothyroidism -continue levothyroxine. TSH normal.
Dementia -presumably Alzheimer's type.
DNR
Dispo -medically stable for discharge to acute rehab. Updated daughter Janay at the bedside. Discussed with case management.
35 minutes spent in discharge process.
Anticipated Discharge: Today
Subjective/Interval History
-
Date of Service: December 13, 2024
Patient seen and examined, no complaints.
Objective Data
-
Vital Signs:
Vital Signs
Temp Pulse Resp BP Pulse Ox
97.5 F 85 16 142/86 96
12/13/24 07:26 12/13/24 08:35 12/13/24 07:26 12/13/24 08:35 12/13/24 08:56
I&O
12/12/24 12/13/24 12/14/24
06:59 06:59 06:59
Intake Total 460 / 460 680 / 680
Output Total 1150 / 1150 500 / 500
Balance -690 / -690 180 / 180
Review of Systems
-
Unable to obtain full review of systems at this time due to: Dementia
History Source: Patient
All other systems: Reviewed and negative
--- NOTE | 2024-12-13 10:25 | CM ---
Pt seen by Dr. Washington; feels BP is stable for discharge. Spoke with Valentine, liaison from [facility], who is concerned about pt's BP. Stated she will review today's BP note; if BP is stable she will have a bed today.
Plan: DC to [facility]/ [place].
--- NOTE | 2024-12-13 14:33 | CM ---
CM reviewed with [facility] liaisonValentine, will submit for auth through [facility].
Updated insurance information faxed to Admissions.
Insurance auth submitted to [facility]- clinicals faxed to [phone], pending reference #[id number].
CM will continue to follow.
Plan; [facility], pending [employer] auth
--- NOTE | 2024-12-13 16:24 | PTCARENOTE ---
Pt awake and alert, oriented x3 but forgetful. Speech sl slurred at times. Moves LUE/LLE well; able to move RUE but very weak; RLE with slight movement to stimuli-unable to lift Rt leg. Pt has (+) Rt facial droop. NIHSS 9. Able to assist with
positioning. VSS. Telemetry:NSR with PAC's. On room air- pulse ox 94%,no SOB noted. Abd obese, soft, katherine PO; no dysphagia noted. Incont urine. Resting in bed at present, no c/o. at bedside. Will continue to monitor.
--- NOTE | 2024-12-13 17:05 | CM ---
Updated and dtr on status of [employer] Auth - waiting for a response
[2024-12-13] MEDS: LIPITOR 40 MG PO (17:31)
[2024-12-14] VITALS (8 sets, daily range): BP systolic 130–184; BP diastolic 75–85; PULSE 85; O2SAT 97
[2024-12-14] MEDS: SYNTHROID 50 MCG PO (05:51)
[2024-12-14] MEDS: NORVASC 10 MG PO (08:58)
[2024-12-14] MEDS: FOLVITE 1 MG PO (08:58)
[2024-12-14] MEDS: VITAMIN B-12 1000 MCG PO (08:58)
[2024-12-14] MEDS: ORETIC 25 MG PO (08:58)
[2024-12-14] MEDS: PLAVIX 75 MG PO (08:59)
[2024-12-14] MEDS: LOW STRENGTH ASPIRIN 81 MG PO (08:59)
[2024-12-14] MEDS: HEPARIN SC (09:12)
--- NOTE | 2024-12-14 10:44 | W.PN.HOSP.TC ---
Today's Communication/Plan
-
Discharge planning
Assessment / Plan
Assessment / Plan
Gen-awake, alert, NAD
HEENT-NC, AT, anicteric, clear oral mm
Neck-supple
CV-reg, no M, +S1/S2
Lungs-clear B/L
Abd-soft, NT, ND
Ext-no edema
Musculoskeletal-no cyanosis, clubbing
Skin-warm and dry
Neuro-right hemiparesis, worse in the right leg compared to the right arm, very mild right lower facial droop
Psych-calm, cooperative
Acute ischemic left hemispheric stroke -right hemiparesis. Unfortunately right hemiparesis is worse today compared to yesterday. Strongly suspect that the onset of stroke was with her multiple falls on December 10. Noted to be unsteady on her feet
in the emergency room with attempted ambulation. Evaluated by neurology, unfortunately not a thrombolysis candidate.
Brain MRI confirmed 3.9 cm focus of restricted diffusion in the left worrell radiata/left frontal periventricular white matter extending slightly into the left putamen consistent with acute infarction. Moderate atrophy with sequela of moderate
chronic small vessel ischemic disease. CTA negative for large vessel occlusion.
Echocardiogram unremarkable.
Neurology recommends aspirin and Plavix for 21 days then aspirin alone. Lipitor started. LDL noted to be 143, HDL 66, total cholesterol 225. Was not on antiplatelet therapy prior to admission as far as we know.
Suspect etiology of stroke is noncompliance with antihypertensives and uncontrolled hypertension.
Hypertensive emergency -presentation with neurologic deficits, falls, acute stroke, uncontrolled blood pressure. Was only on amlodipine 5 mg daily at home. Dose increased to 10 mg daily, HCTZ started. Discussed with family that she will need at
least 2-3 blood pressure meds moving forward. Encourage compliance with home medications, although her dementia will likely get in the way.
Spoke with daughter at the bedside today. Apparently her mother has not followed up with her primary care doctor in quite some time and was not taking blood pressure meds regularly at home. Mother was living alone with her .
Overall blood pressures have improved.
Vitamin B12 deficiency -continue oral repletion.
Relatively low folic acid level, continue oral repletion.
Hypothyroidism -continue levothyroxine. TSH normal.
Dementia -presumably Alzheimer's type.
DNR
Dispo -medically stable for discharge to acute rehab. Awaiting insurance approval.
Anticipated Discharge: Within 24 hours
Subjective/Interval History
-
Date of Service: December 14, 2024
Patient seen and examined. No complaints.
Objective Data
-
Vital Signs:
Vital Signs
Temp Pulse Resp BP Pulse Ox
97.7 F 84 16 130/84 92
12/14/24 07:00 12/14/24 07:00 12/14/24 07:00 12/14/24 07:00 12/14/24 07:00
I&O
12/13/24 12/14/24 12/15/24
06:59 06:59 05:59
Intake Total 680 / 680 660 / 660
Output Total 500 / 500
Balance 180 / 180 660 / 660
Review of Systems
-
Unable to obtain full review of systems at this time due to: Dementia
History Source: Patient
All other systems: Reviewed and negative
[2024-12-14] MEDS: LIPITOR 40 MG PO (17:03)
[2024-12-14] MEDS: LOVENOX 40 MG SC (17:03)
[2024-12-15] VITALS (7 sets, daily range): BP systolic 129–155; BP diastolic 57–89
[2024-12-15] MEDS: SYNTHROID 50 MCG PO (05:24)
--- NOTE | 2024-12-15 07:52 | CM ---
Late entry for 12/14/24
Multiple calls to [employer] to check the status of the authorization; all responses through the automated system were'pending ' Unable to reach anyone in customer service. [employer] was also accessed on multiple occasions throughout the day to check
auth status; the status remainded pending.
and Dtr Janay were updated throughout the day
Plan: DC to [facility] once auth is obtained
[2024-12-15] MEDS: NORVASC 10 MG PO (08:22)
[2024-12-15] MEDS: VITAMIN B-12 1000 MCG PO (08:22)
[2024-12-15] MEDS: PLAVIX 75 MG PO (08:22)
[2024-12-15] MEDS: ORETIC 25 MG PO (08:22)
[2024-12-15] MEDS: LOW STRENGTH ASPIRIN 81 MG PO (08:22)
[2024-12-15] MEDS: FOLVITE 1 MG PO (08:22)
--- NOTE | 2024-12-15 09:38 | W.PN.HOSP.TC ---
Today's Communication/Plan
-
Discharge planning
Assessment / Plan
Assessment / Plan
Gen-awake, alert, NAD
HEENT-NC, AT, anicteric, clear oral mm
Neck-supple
CV-reg, no M, +S1/S2
Lungs-clear B/L
Abd-soft, NT, ND
Ext-no edema
Musculoskeletal-no cyanosis, clubbing
Skin-warm and dry
Neuro-right hemiparesis, worse in the right leg compared to the right arm, very mild right lower facial droop
Psych-calm, cooperative
Acute ischemic left hemispheric stroke -right hemiparesis. Unfortunately right hemiparesis is worse today compared to yesterday. Strongly suspect that the onset of stroke was with her multiple falls on December 10. Noted to be unsteady on her feet
in the emergency room with attempted ambulation. Evaluated by neurology, unfortunately not a thrombolysis candidate.
Brain MRI confirmed 3.9 cm focus of restricted diffusion in the left worrell radiata/left frontal periventricular white matter extending slightly into the left putamen consistent with acute infarction. Moderate atrophy with sequela of moderate
chronic small vessel ischemic disease. CTA negative for large vessel occlusion.
Echocardiogram unremarkable.
Neurology recommends aspirin and Plavix for 21 days then aspirin alone. Lipitor started. LDL noted to be 143, HDL 66, total cholesterol 225. Was not on antiplatelet therapy prior to admission as far as we know.
Suspect etiology of stroke is noncompliance with antihypertensives and uncontrolled hypertension.
Hypertensive emergency -presentation with neurologic deficits, falls, acute stroke, uncontrolled blood pressure. Was only on amlodipine 5 mg daily at home. Dose increased to 10 mg daily, HCTZ started. Discussed with family that she will need at
least 2-3 blood pressure meds moving forward. Encourage compliance with home medications, although her dementia will likely get in the way.
Spoke with daughter at the bedside today. Apparently her mother has not followed up with her primary care doctor in quite some time and was not taking blood pressure meds regularly at home. Mother was living alone with her .
Overall blood pressures have improved.
Vitamin B12 deficiency -continue oral repletion.
Relatively low folic acid level, continue oral repletion.
Hypothyroidism -continue levothyroxine. TSH normal.
Dementia -presumably Alzheimer's type.
DNR
Dispo -medically stable for discharge to acute rehab. Awaiting insurance approval.
Anticipated Discharge: Within 24 hours
Subjective/Interval History
-
Date of Service: December 15, 2024
Patient seen and examined, no complaints.
Objective Data
-
Vital Signs:
Vital Signs
Temp Pulse Resp BP Pulse Ox
97.4 F 85 16 131/84 97
12/15/24 07:00 12/15/24 07:00 12/15/24 07:00 12/15/24 07:00 12/15/24 07:00
I&O
12/14/24 12/15/24 12/16/24
06:59 05:59 06:59
Intake Total 660 / 660 480 / 480
Output Total 300 / 300
Balance 660 / 660 180 / 180
Review of Systems
-
History Source: Patient
All other systems: Reviewed and negative
[2024-12-15] MEDS: LOVENOX 40 MG SC (18:05)
[2024-12-15] MEDS: LIPITOR 40 MG PO (18:05)
[2024-12-16 03:19] VITALS: BP 143/90
[2024-12-16] MEDS: SYNTHROID 50 MCG PO (05:42)
[2024-12-16 07:00] VITALS: BP 128/73
[2024-12-16] MEDS: VITAMIN B-12 1000 MCG PO (08:28)
[2024-12-16] MEDS: NORVASC 10 MG PO (08:29)
[2024-12-16] MEDS: ORETIC 25 MG PO (08:29)
[2024-12-16] MEDS: PLAVIX 75 MG PO (08:29)
[2024-12-16] MEDS: LOW STRENGTH ASPIRIN 81 MG PO (08:29)
[2024-12-16] MEDS: FOLVITE 1 MG PO (08:29)
[2024-12-16 11:00] VITALS: BP 119/71
--- NOTE | 2024-12-16 11:11 | CM ---
Chart Reviewed. Checked status of authorization for acute rehab; RN has been assigned to case
Pt is medically stable for DC.
Plan: DC to [facility] when auth is obtained.
--- NOTE | 2024-12-16 12:41 | CM ---
Received Acute Re[facility] auth from [facility] #[id number]. 7 days approved Start date 01/12/25; no last coverage date.
[facility]

Bed is available. Nurse made aware
[2024-12-16] MEDS: FLUZONE HIGH-DOSE 2025-26 0.5 ML IM (13:12)
--- NOTE | 2024-12-16 13:49 | W.DCSUMMARY ---
Discharge Summary
Discharge Data
Date of Admission: 12/11/24
Date of Discharge: 12/16/24
-
Pending Results: No
Hospital Course
84 female history of dementia CKD stage IIIb, hypertension, GERD, hypothyroidism
Presented with concern for falls. On 12/11 was noted to have a left right-sided weakness and right lower facial droop unclear duration of symptoms. Brain MRI was obtained and neurology was consulted. MRI brain demonstrated concerning findings for
stroke. Neurology recommended starting DAPT for 21 days followed by aspirin alone indefinitely. Also started 40 mg Lipitor every afternoon. Evaluated by physical therapy recommended acute rehab facility
12/10 CT Head
IMPRESSION:
No acute intracranial abnormality noted. No acute intracranial hemorrhage. No skull fracture. Chronic microvascular white matter ischemic disease. Moderate global atrophy.
12/11 Brain MRI
IMPRESSION:
3.9 cm focus of restricted diffusion within the left worrell radiata/left frontal periventricular white matter extending slightly into the left putamen consistent with an acute infarction.
Moderate atrophy with sequelae of moderate chronic small vessel ischemic disease.
MRA Head
IMPRESSION:
There is moderate stenosis within the bilateral M1 segments of the middle cerebral arteries.
There is mild stenosis within the bilateral anterior and posterior communicating arteries.
MRA Neck
IMPRESSION:
This examination demonstrates no focal hemodynamically significant stenosis, aneurysm or occlusion.
CTA neck
IMPRESSION:
1. No evidence of large vessel occlusion, or arterial dissection.
2. Prominence of the ascending thoracic aorta, which measures 3.6 cm in diameter.
HeadCT
IMPRESSION:
1. No hemorrhagic conversion.
2. Hypoattenuation within the left worrell radiata, in the area of acute infarct on MRI brain dated 12/11/2024.
3. Sequela of small vessel ischemic change.
Seen and examined on the day of discharge which was 12/16/2024. No new complaints. No acute overnight events.
NAD
Scleral Anicteric, right facial droop
MMM
No JVD
CTABL
RRR, S1/S2
Soft, NT, ND, BS+
Warm, Dry
AAOx3, right facial droop, right upper and lower extremity weakness noted, worse in lower extremity than upper extremity
Calm
More than 30 minutes spent in discharge including
Final examination of the patient
Summarizing hospital stay
Instructions for continuing care to all relevant caregivers
Preparation of discharge records, prescriptions, and referral forms
Total time spent (in minutes): 33mins
Discharge Plan
-
Patient Disposition: Acute Rehab Facility
Discharge Diagnosis/Procedures: Acute stroke, right hemiparesis
Condition: Fair
Diet: Low Fat, Low Cholesterol and Low Sodium
Activity: With assistance and As tolerated
Driving Restrictions: No driving
Bathing Restrictions: None
Activity Restrictions/Additional Instructions:
Aspirin and Plavix for 19 more days then stop Plavix and continue aspirin.
Referrals:
Ozzie Chavez DO [Family Provider, Family Practice] - in one week
Additional Discharge Medication Instructions: Aspirin and plavix for 21 days then Aspirin alone.
Prescriptions:
New
atorvastatin 40 mg Tablet
40 mg PO QPM Qty: 0 0RF
acetaminophen 325 mg Tablet
650 mg PO Q4HPRN PRN (Reason: mild pain/STINSON/temp> 100.4F) Qty: 0 0RF
clopidogrel 75 mg Tablet
75 mg PO DAILY Qty: 0 0RF
cyanocobalamin (vitamin B-12) 500 mcg Tablet
1,000 mcg PO DAILY Qty: 0 0RF
amlodipine 10 mg Tablet
10 mg PO DAILY Qty: 0 0RF
aspirin 81 mg Tablet,Chewable
81 mg PO DAILY Qty: 0 0RF
folic acid 1 mg Tablet
1 mg PO DAILY Qty: 0 0RF
hydrochlorothiazide 25 mg Tablet
25 mg PO DAILY Qty: 0 0RF
Continued
levothyroxine 50 mcg tablet
50 mcg PO DAILY
Discontinued
amlodipine 5 mg tablet
5 mg PO DAILY
Namenda
10 mg PO DAILY
rivastigmine
3 mg PO BID
Discharge Orders:
Discharge Patient (As Directed); Ordered 12/16/24
Ordered By: Charan Davidson
Discharge Date and Time
Print Language: [id number]
== END 2024-12-16 15:09 | DRG 304 ==
LOC: 4 EAST ACU 14:01
PROVIDERS: Clinical Nurse Specialist Family Health; Hospitalist; Registered Nurse Critical Care Medicine; ADMITTING PHYSICIAN Internal Medicine; ATTENDING PHYSICIAN Hospitalist; CONSULT PHYSICIAN Psychiatry & Neurology Neurology; EMERGENCY PHYSICIAN Emergency Medicine; FAMILY PHYSICIAN Family Medicine
PROC: 3E02340 Introduction of Influenza Vaccine into Muscle, Percutaneous Approach (ICD-10-PCS; 2024-12-16)
DX: I16.1 Hypertensive emergency (principal); I63.9 Cerebral infarction, unspecified; G81.91 Hemiplegia, unspecified affecting right dominant side; Z79.890 Hormone replacement therapy; E03.9 Hypothyroidism, unspecified; N18.32 Chronic kidney disease, stage 3b; I12.9 Hypertensive chronic kidney disease with stage 1 through stage 4 chronic kidney disease, or unspecified chronic kidney disease; K21.9 Gastro-esophageal reflux disease without esophagitis; G51.0 Bell's palsy; R29.6 Repeated falls; W19.XXXA Unspecified fall, initial encounter; Z90.710 Acquired absence of both cervix and uterus; E53.8 Deficiency of other specified B group vitamins; Z66 Do not resuscitate; G30.9 Alzheimer's disease, unspecified; F02.80 Dementia in other diseases classified elsewhere, unspecified severity, without behavioral disturbance, psychotic disturbance, mood disturbance, and anxiety; Z85.43 Personal history of malignant neoplasm of ovary; E78.5 Hyperlipidemia, unspecified; H54.7 Unspecified visual loss; H93.19 Tinnitus, unspecified ear; R29.712 NIHSS score 12; Z79.899 Other long term (current) drug therapy; Z87.891 Personal history of nicotine dependence; Z23 Encounter for immunization
CPT/HCPCS: 70450; 70496; 70498; 70544; 70548; 70553; 80053; 80061; 81003; 81015; 82248; 82607; 82728; 82746; 82962; 83036; 83735; 84443; 85025; 90662; 92507; 92523; 92526; 92610; 93005; 93306; 96360; 97112; 97116; 97163; 97167; 97530; 97535; 99285; A9585; G0008; Q9967